=== PATIENT | female | born 1990 ===

== ENCOUNTER → 2017-10-17 | Outpatient (CLI) | payer SELFPAY ==
--- NOTE | 2017-10-17 13:07 | Diagnostic Imaging Report ---
INDICATION: Epigastric abdominal pain. TECHNIQUE: Multiple grayscale sonographic images were obtained of the right upper quadrant of the abdomen. CORRELATION STUDY: None. FINDINGS: LIVER: There is uniform echotexture within the visualized portions of the liver. Liver length 15.7 cm. GALLBLADDER: There is presence of multiple shadowing gallstones. These reportedly are largely nonmobile. Visualized gallbladder wall does not appear to be abnormally thickened, at 2 mm. COMMON BILE DUCT: Mildly dilated for the patient's age at 8 mm. PANCREAS: Largely obscured and not well visualized. RIGHT KIDNEY: Measures 10.0 cm. No hydronephrosis. AORTA/IVC: Not well visualized. OTHER: None. IMPRESSION: 1. Cholelithiasis with multiple nonmobile gallstones. Additionally, there is mild dilatation of the common bile duct. No additional findings to suggest acute cholecystitis. If further assessment is desired, nuclear medicine HIDA scan may be of additional benefit. Dictated by: Dictated on workstation # [id number]
== END ==
LOC: RAD 08:51
PROVIDERS: ATTEND Nurse Practitioner Primary Care
DX: K80.20 Calculus of gallbladder without cholecystitis without obstruction (principal)
CPT/HCPCS: 76705

== ENCOUNTER 2017-12-29 06:17 | Day surgery (SDC) | payer OTHER ==
[~2017-12-29] VITALS: Ht 149.9 cm; Wt 78.9 kg
[~2017-12-29 06:17] MED LIST: BIRTH CONTROL PILL PO; ESOM20CA PO
--- OUTSIDE RECORDS SUMMARY | 2017-12-29 06:21 | XMS REPORT ---
Author Author ZAIRA GALINDO [facility] Address [address] [place] [address] Care Team Providers Care Ultrasonic Tester Name Role Phone PRIMITIVO GALINDOTA Unavailable PROBLEMS Type Condition ICD9-CM Code AOR69-NG Code Onset Dates Condition Status SNOMED Code Problem Acanthosis nigricans L83 Active 906947013 Problem Epigastric pain R10.13 Active 31783641 Problem Calculus of gallbladder without cholecystitis without obstruction K80.20 Active 950173105 Problem Insulin resistance E88.81 Active 60774079 Problem Irregular menses N92.6 Active 10486428 Problem Gastroesophageal reflux disease, esophagitis presence not specified K21.9 Active 193634798 ALLERGIES No Known Allergies ENCOUNTERS Encounter Location Date Diagnosis [place] [address] [address] Nov, Insulin resistance E88.81 [facility] [address] [address] Nov, Irregular menses N92.6 [place] [address] [place] [id number] [place] [address] Nov, Irregular menses N92.6 ; Encounter for initial prescription of contraceptive pills Z30.011 ; Gastroesophageal reflux disease, esophagitis presence not specified K21.9 and Acanthosis nigricans L83 [facility] [address] [place] [id number] [place] [address] Oct, Calculus of gallbladder without cholecystitis without obstruction K80.20 [facility] [address] [place] [id number] [place] [address] Sep, Onychocryptosis L60.0 [place] [address] [place] [id number] [place] [address] Sep, Epigastric pain R10.13 [facility] [address] [facility] [id number] [place] [address] Sep, Onychocryptosis L60.0 [facility] [address] [facility] [id number] [address] August, [facility] [address] [facility] [id number] [place] [address] August, Well woman exam Z01.419 ; Screening for STD (sexually transmitted disease) Z11.3 ; Epigastric pain R10.13 ; Gastroesophageal reflux disease, esophagitis presence not specified K21.9 ; Acute vaginitis N76.0 and Irregular menses N92.6 [facility] [address] [facility] [id number] [id number] August, Dental examination V72.2 IMMUNIZATIONS No Known Immunizations SOCIAL HISTORY Never Assessed REASON FOR VISIT Toenail c/o,. patient states she has a rt ingrown toenail x 1 month -- aram dang PLAN OF CARE Activity Details Follow Up tomorrow Reason:nail removal VITAL SIGNS Height 59 in 2017-10-10 Weight 179.0 lbs 2017-10-10 Temperature 97.0 degrees Fahrenheit 2017-10-10 Heart Rate 70 bpm 2017-10-10 Respiratory Rate 18 2017-10-10 BMI 36.15 kg/m2 2017-10-10 Blood pressure systolic 120 mmHg 2017-10-10 Blood pressure diastolic 70 mmHg 2017-10-10 MEDICATIONS Medication Instructions Dosage Frequency Start Date End Date Duration Status Nexium 20 mg Orally Once a day 1 capsule 24h August, 90 days Active RESULTS No Results PROCEDURES No Known procedures INSTRUCTIONS MEDICATIONS ADMINISTERED No Known Medications MEDICAL (GENERAL) HISTORY Type Description Date Medical History Acid Reflux Medical History Gall stones Surgical History section Surgical History Appendectomy Hospitalization History past surgery
--- OUTSIDE RECORDS SUMMARY | 2017-12-29 06:21 | XMS REPORT ---
Author Author MOUNIKA NICHOLSON [facility] Address [address] [place] [address] Care Team Providers Care Hotel Clerk Name Role Phone MOUNIKA NICHOLSON Unavailable PROBLEMS Type Condition ICD9-CM Code MRJ63-DC Code Onset Dates Condition Status SNOMED Code Problem Acanthosis nigricans L83 Active 396215192 Problem Epigastric pain R10.13 Active 63542652 Problem Calculus of gallbladder without cholecystitis without obstruction K80.20 Active 313070189 Problem Insulin resistance E88.81 Active 17469726 Problem Irregular menses N92.6 Active 45161777 Problem Gastroesophageal reflux disease, esophagitis presence not specified K21.9 Active 186449346 ALLERGIES No Known Allergies ENCOUNTERS Encounter Location Date Diagnosis [facility] [address] [address] Nov, Insulin resistance E88.81 [facility] [address] [address] Nov, Irregular menses N92.6 [place] [address] [address] Nov, Irregular menses N92.6 ; Encounter for initial prescription of contraceptive pills Z30.011 ; Gastroesophageal reflux disease, esophagitis presence not specified K21.9 [address] L83 [facility] [address] [place] [id number] [place] [address] Oct, Calculus of gallbladder without cholecystitis without obstruction K80.20 [facility] [address] [place] [id number] [place] [address] 13 Sep, 2017 Onychocryptosis L60.0 [place] [address] [address] Sep, Epigastric pain R10.13 [facility] [address] [id number] [address] Sep, Onychocryptosis L60.0 [facility] [address] [facility] [id number], [place] [address] August, [facility] [address] [id number] [address] August, Well woman exam Z01.419 ; Screening for STD (sexually transmitted disease) Z11.3 ; Epigastric pain R10.13 ; Gastroesophageal reflux disease, esophagitis presence not specified K21.9 ; Acute vaginitis N76.0 and Irregular menses N92.6 [facility] [address] [id number] [id number] August, Dental examination V72.2 IMMUNIZATIONS No Known Immunizations SOCIAL HISTORY Never Assessed REASON FOR VISIT GERD f/u. Pt states Nexium has been more positively effective than her last medication. cedrick PLAN OF CARE Activity Details Follow Up 2 Weeks, after lab and US Reason: VITAL SIGNS Height 59 in 2017-10-11 Weight 180 lbs 2017-10-11 Temperature 98.1 degrees Fahrenheit 2017-10-11 Heart Rate 88 bpm 2017-10-11 Respiratory Rate 20 2017-10-11 BMI 36.35 kg/m2 2017-10-11 Blood pressure systolic 118 mmHg 2017-10-11 Blood pressure diastolic 80 mmHg 2017-10-11 MEDICATIONS Medication Instructions Dosage Frequency Start Date End Date Duration Status Nexium 20 mg Orally Once a day 1 capsule 24h August, Active RESULTS Name Result Date Reference Range LIPASE 2017-10-11 LIPASE 29 7-60 Ultrasound : Gallbladder 2017-10-17 PROCEDURES Procedure Date Ordered Result Body Site COMPLETE CBC W/AUTO DIFF WBC October 11, 2017 COMPREHEN METABOLIC PANEL October 11, 2017 VENIPUNCT, ROUTINE* October 11, 2017 ASSAY OF LIPASE October 11, 2017 INSTRUCTIONS MEDICATIONS ADMINISTERED No Known Medications MEDICAL (GENERAL) HISTORY Type Description Date Medical History Acid Reflux Medical History Gall stones Surgical History section Surgical History Appendectomy Hospitalization History past surgery
--- OUTSIDE RECORDS SUMMARY | 2017-12-29 06:21 | XMS REPORT ---
Author Author MOUNIKA NICHOLSON [facility] Address [address] [place] [address] Care Team Providers Care Channel Cementer Insole Machine Name Role Phone MOUNIKA NICHOLSON Unavailable PROBLEMS Type Condition ICD9-CM Code BQI06-CS Code Onset Dates Condition Status SNOMED Code Problem Acanthosis nigricans L83 Active 673943692 Problem Epigastric pain R10.13 Active 67817787 Problem Calculus of gallbladder without cholecystitis without obstruction K80.20 Active 530068443 Problem Insulin resistance E88.81 Active 07335192 Problem Irregular menses N92.6 Active 28236999 Problem Gastroesophageal reflux disease, esophagitis presence not specified K21.9 Active 211714066 ALLERGIES No Information ENCOUNTERS Encounter Location Date Diagnosis [place] [address] [address] Nov, Irregular menses N92.6 [place] [address] [address] Nov, Irregular menses N92.6 ; Encounter for initial prescription of contraceptive pills Z30.011 ; Gastroesophageal reflux disease, esophagitis presence not specified K21.9 and Acanthosis nigricans L83 [place] [address] [address] Oct, Calculus of gallbladder without cholecystitis without obstruction K80.20 [place] [address] [address] Sep, Onychocryptosis L60.0 [place] [address] [address] Sep, Epigastric pain R10.13 [place] [address] [address] Sep, Onychocryptosis L60.0 [facility] [address] [facility] [id number], [place] [address] August, [facility] [address] [facility] [id number], [place] [address] August, Well woman exam Z01.419 ; Screening for STD (sexually transmitted disease) Z11.3 ; Epigastric pain R10.13 ; Gastroesophageal reflux disease, esophagitis presence not specified K21.9 ; Acute vaginitis N76.0 and Irregular menses N92.6 [facility] [address] [facility] [id number] [id number] August, Dental examination V72.2 IMMUNIZATIONS No Known Immunizations SOCIAL HISTORY Never Assessed REASON FOR VISIT [facility] updated PLAN OF CARE VITAL SIGNS MEDICATIONS Unknown Medications RESULTS No Results PROCEDURES No Known procedures INSTRUCTIONS MEDICATIONS ADMINISTERED No Known Medications MEDICAL (GENERAL) HISTORY Type Description Date Medical History Acid Reflux Medical History Gall stones Surgical History section Surgical History Appendectomy Hospitalization History past surgery
--- OUTSIDE RECORDS SUMMARY | 2017-12-29 06:21 | XMS REPORT ---
Author Author ZAIRA GALINDO [facility] Address [address] [place] [address] Care Team Providers Care Operations Research Director Name Role Phone PRIMITIVO GALINDOTA Unavailable PROBLEMS Type Condition ICD9-CM Code KOC61-XR Code Onset Dates Condition Status SNOMED Code Problem Acanthosis nigricans L83 Active 001099806 Problem Epigastric pain R10.13 Active 19597443 Problem Calculus of gallbladder without cholecystitis without obstruction K80.20 Active 102600218 Problem Insulin resistance E88.81 Active 53777956 Problem Irregular menses N92.6 Active 33939289 Problem Gastroesophageal reflux disease, esophagitis presence not specified K21.9 Active 651352497 ALLERGIES No Known Allergies ENCOUNTERS Encounter Location Date Diagnosis [place] [address] [address] Nov, Insulin resistance E88.81 [facility] [address] [address] Nov, Irregular menses N92.6 [place] [address] [place] [id number] [place] [address] Nov, Irregular menses N92.6 ; Encounter for initial prescription of contraceptive pills Z30.011 ; Gastroesophageal reflux disease, esophagitis presence not specified K21.9 and Acanthosis nigricans L83 [facility] [address] [place] [id number] [place] [address] Oct, Calculus of gallbladder without cholecystitis without obstruction K80.20 [facility] [address] [place] [id number] [place] [address] Sep, Onychocryptosis L60.0 [place] [address] [place] [id number] [place] [address] Sep, Epigastric pain R10.13 [facility] [address] [facility] [id number] [place] [address] Sep, Onychocryptosis L60.0 [facility] [address] [facility] [id number] [place] [address] August, [facility] [address] [facility] [id number] [place] [address] August, Well woman exam Z01.419 ; Screening for STD (sexually transmitted disease) Z11.3 ; Epigastric pain R10.13 ; Gastroesophageal reflux disease, esophagitis presence not specified K21.9 ; Acute vaginitis N76.0 and Irregular menses N92.6 [facility] [address] [facility] [id number] [place] [id number] August, Dental examination V72.2 IMMUNIZATIONS No Known Immunizations SOCIAL HISTORY Never Assessed REASON FOR VISIT ingrown toenail-removal of large right ingrown toenail-[facility] PLAN OF CARE Activity Details Follow Up prn Reason: VITAL SIGNS Height 59 in 2017-10-11 Weight 179.0 lbs 2017-10-11 Temperature 97.5 degrees Fahrenheit 2017-10-11 Heart Rate 70 bpm 2017-10-11 Respiratory Rate 20 2017-10-11 BMI 36.15 kg/m2 2017-10-11 Blood pressure systolic 112 mmHg 2017-10-11 Blood pressure diastolic 78 mmHg 2017-10-11 MEDICATIONS Medication Instructions Dosage Frequency [...]
--- OUTSIDE RECORDS SUMMARY | 2017-12-29 06:21 | XMS REPORT ---
Author Author MOUNIKA NICHOLSON [facility] Address [address] [place] [address] Care Team Providers Care Cable Weaver Name Role Phone MOUNIKA NICHOLSON Unavailable PROBLEMS Type Condition ICD9-CM Code NPL86-CP Code Onset Dates Condition Status SNOMED Code Problem Acanthosis nigricans L83 Active 795146982 Problem Epigastric pain R10.13 Active 18402945 Problem Calculus of gallbladder without cholecystitis without obstruction K80.20 Active 568431059 Problem Insulin resistance E88.81 Active 03411420 Problem Irregular menses N92.6 Active 11021032 Problem Gastroesophageal reflux disease, esophagitis presence not specified K21.9 Active 001305650 ALLERGIES No Known Allergies ENCOUNTERS Encounter Location Date Diagnosis [place] [address] [address] Nov, Irregular menses N92.6 [place] [address] [address] Nov, Irregular menses N92.6 ; Encounter for initial prescription of contraceptive pills Z30.011 ; Gastroesophageal reflux disease, esophagitis presence not specified K21.9 and Acanthosis nigricans L83 [place] [address] [address] Oct, Calculus of gallbladder without cholecystitis without obstruction K80.20 [place] [address] [address] Sep, Onychocryptosis L60.0 [place] [address] [address] Sep, Epigastric pain R10.13 [place] [address] [address] Sep, Onychocryptosis L60.0 [facility] [address] [facility] [id number], [place] [address] August, [facility] [address] [facility] [id number], [place] [address] August, Well woman exam Z01.419 ; Screening for STD (sexually transmitted disease) Z11.3 ; Epigastric pain R10.13 ; Gastroesophageal reflux disease, esophagitis presence not specified K21.9 ; Acute vaginitis N76.0 and Irregular menses N92.6 [facility] [address] [facility] [id number] [place] [id number] August, Dental examination V72.2 IMMUNIZATIONS No Known Immunizations SOCIAL HISTORY Never Assessed REASON FOR VISIT Annual physical (female)--tcuppettRN, Pt is only having a few periods a year PLAN OF CARE Activity Details Follow Up 4 Weeks Reason:GERD/Abd pain Pending Test PAP REFLEX TO HPV IF ASCUS VITAL SIGNS Height 59 in 2017-09-01 Weight 176.0 lbs 2017-09-01 Temperature 98.1 degrees Fahrenheit 2017-09-01 Heart Rate 80 bpm 2017-09-01 Respiratory Rate 18 2017-09-01 BMI 35.54 kg/m2 2017-09-01 Blood pressure systolic 134 mmHg 2017-09-01 Blood pressure diastolic 82 mmHg 2017-09-01 MEDICATIONS Medication Instructions Dosage Frequency Start Date End Date Duration Status Nexium 20 mg Orally Once a day 1 capsule 24h August, 90 days Active Metronidazole 500 mg Orally 2 times a day 1 tablet 12h August,August 07 days Active RESULTS No Results PROCEDURES Procedure Date Ordered Result Body Site SPECIMEN HANDLING September 01, 2017 No Charge September 01, 2017 TRICHOMONAS ASSAY W/OPTIC September 01, 2017 Bacterial Vaginosis In House September 01, 2017 INSTRUCTIONS MEDICATIONS ADMINISTERED No Known Medications MEDICAL (GENERAL) HISTORY Type Description Date Medical History Acid Reflux Medical History Gall stones Surgical History section Surgical History Appendectomy Hospitalization History past surgery
[2017-12-29] MEDS ORDERED: ceFAZolin INJECTION 1,000 MG in NS (IVPB) 50 ML IV ONE (06:30)
[2017-12-29 06:40] VITALS: BP 126/77
[2017-12-29] MEDS: LACTATED RINGERS 1,000 ML IV PRN ×2 (06:50→09:22)
[2017-12-29 06:55] LABS: BASOPHILS % (AUTO) 0 % (0-10); EOSINOPHILS # (AUTO) 0.1 10^3/uL (0.0-0.3); EOSINOPHILS % (AUTO) 2 % (0-10); HEMATOCRIT 42 % (35-52); HEMOGLOBIN 14.7 G/DL (11.5-16.0); LYMPHOCYTES # (AUTO) 3.1 X 10^3 (1.0-4.0); LYMPHOCYTES % (AUTO) 46 % (12-44); MEAN CORPUSCULAR HEMOGLOBIN 32 PG (25-34); MEAN CORPUSCULAR HGB CONC 35 G/DL (32-36); MEAN CORPUSCULAR VOLUME 91 FL (80-99); MEAN PLATELET VOLUME 11.5 FL (7.4-10.4); MONOCYTES # (AUTO) 0.7 X 10^3 (0.0-1.0); MONOCYTES % (AUTO) 11 % (0-12); NEUTROPHILS # (AUTO) 2.8 X 10^3 (1.8-7.8); NEUTROPHILS % (AUTO) 42 % (42-75); PLATELET COUNT 254 10^3/uL (130-400); RED BLOOD COUNT 4.59 10^6/uL (4.35-5.85); RED CELL DISTRIBUTION WIDTH 12.7 % (10.0-14.5); WHITE BLOOD COUNT 6.7 10^3/uL (4.3-11.0)
[2017-12-29] MEDS ORDERED: BUPIVACAINE 0.5% 30 ML (SENSORCAINE) VIAL ONE (07:03)
[2017-12-29] MEDS ORDERED: LIDOCAINE 1% INJ 20 ML 20 ML VIAL ONE (07:03)
[2017-12-29] MEDS ORDERED: LIDOCAINE PF 2% 5 ML (XYLOCAINE) VIAL ONE (07:05)
[2017-12-29] MEDS ORDERED: proPOfol 200 MG/20 ML (DIPRIVAN) VIAL IV ONE (07:05)
[2017-12-29] MEDS ORDERED: FAMOTIDINE 20MG/2ML IV (PEPCID) ONE (07:05)
[2017-12-29] MEDS ORDERED: ONDANSETRON 4 MG/2 ML (SDV) Z0FRAN ONE (07:05)
[2017-12-29] MEDS ORDERED: DEXAMETHASONE 10 MG/ML (DECADRON) 1 ML VIAL ONE (07:05)
[2017-12-29] MEDS ORDERED: ROCURONIUM 10 MG/ML 5 ML SYRINGE IV ONE (07:05)
[2017-12-29] MEDS ORDERED: MIDAZOLAM 2 MG/2 ML (VERSED) VIAL ONE (07:06)
[2017-12-29] MEDS ORDERED: fentaNYL INJECTION 100 MCG/2 ML AMP ONE (07:06)
[2017-12-29] MEDS ORDERED: SEVOFLURANE (ULTANE) 15 ML INHAL SOLN ONE ×3 (07:14→09:58)
[2017-12-29] MEDS ORDERED: FAMOTIDINE 20MG/2ML IV (PEPCID) IVP ONE (07:15)
[2017-12-29] MEDS ORDERED: GLYCOPYRROLATE 0.2 MG/ML (ROBINUL) 2 ML VIAL ONE (07:20)
[2017-12-29] MEDS ORDERED: NEOSTIGMINE 1 MG/ML 5 ML SYRINGE ONE (07:20)
--- NOTE | 2017-12-29 09:50 | Diagnostic Imaging Report ---
INDICATION: Gallbladder disease. FINDINGS: Intraoperative cholangiogram demonstrates normal caliber of the intrahepatic and extrahepatic biliary ducts. No intrinsic or extrinsic filling defects are appreciated. There is free spill of contrast into the duodenum. There is no pathological extravasation of contrast. IMPRESSION: Unremarkable intraoperative cholangiogram status post cholecystectomy. Please correlate with the formal operative report. Dictated by: Dictated on workstation # [id number]
--- NOTE | 2017-12-29 10:04 | Progress Note-Pre Operative ---
Pre-Operative Progress Note H&P Reviewed The H&P was reviewed, patient examined and no changes noted. Date Seen by Provider: Dec 29, 2017 Time Seen by Provider: 07:46 Date H&P Reviewed: Dec 29, 2017 Time H&P Reviewed: 07:46 Pre-Operative Diagnosis: symptomatic cholelithiasis ANIL CORADO DO Dec 29, 2017 10:04 am
--- NOTE | 2017-12-29 10:05 | Progress Note-Post Operative ---
Post-Operative Progess Note Surgeon (s)/Step Finisher (s) Surgeon ANIL CORADO DO Step Finisher: Dr. Santiago Pre-Operative Diagnosis symptomatic cholelithiasis Post-Operative Diagnosis same Procedure & Operative Findings Date of Procedure 12/29/17 Procedure Performed/Findings lap santiago c ioc Anesthesia Type gen Estimated Blood Loss Estimated blood loss (mL): min Specimens/Packing Specimens Removed gallbladder ANIL CORADO DO Dec 29, 2017 10:05 am
[2017-12-29] MEDS ORDERED: DOCU-143 PO (10:06)
[2017-12-29] MEDS ORDERED: ACHD5005 PO (10:06)
--- NOTE | 2017-12-29 10:07 | Discharge Inst-Simple/Standard ---
Discharge Inst-Standard Discharge Medications New, Converted or Re-Newed RX: RX on Chart Patient Instructions/Follow Up Plan of Care/Instructions/FU: 2 weeks Atiya Activity as Tolerated: No Discharge Diet: Regular Diet Other Inst to Patient Follow up Appt: Make appointment for 2 weeks. Instructions: No lifting greater than 10 pounds. No strenuous activity. May shower in 24 hours, no tub bath or soaking. Use incentive spirometer at home as directed. No Smoking Skin/Wound Care: you have special glue over incisions it will fall off on its own. Symptoms to Report: Appetite Changes, Extremity Discoloration, Numbness/Tingling, Swelling Increased , Bleeding Excessive, Eyesight Changes, Pain Increased, Urine Color Change, Constipation(Persistent), Fever over 101 degree F, Pain/Pressure in chest, Urinating Difficulty, Cough Up/Vomit Blood, Heart Beat Irreg/Pounding, Pain/ Pressure in jaw, Vaginal Bleeding Increase, Cramps in feet or legs, Lightheadedness, Pain/Pressure in shoulder, Diarrhea(Persistent), Memory Changes Suddenly, Questions/Concerns, Weight gain consecutive days, Dizziness/ Fainting, Nausea/Vomiting, Shortness of Breath, Weight gain over 2 pounds. If eyes or skin turn yellow notify physician. If questions or concerns contact your physician Or seek help at emergency department. ANIL CORADO DO Dec 29, 2017 10:07 am
[2017-12-29] MEDS ORDERED: morphine INJ 10 MG/ML 1ML (SYR OR VIAL) ONE (10:28)
[2017-12-29] MEDS ORDERED: morphine INJ 10 MG/ML 1ML (SYR OR VIAL) IVP ONE (10:45)
[2017-12-29] MEDS ORDERED: ONDANSETRON 4 MG/2 ML (SDV) Z0FRAN IVP PRN (10:45)
[2017-12-29 11:00] VITALS: BP 126/86
[2017-12-29 11:01] VITALS: BP 126/86
--- NOTE | 2017-12-29 11:16 | Anesthesia-General Post-Op ---
General Patient Condition Mental Status/LOC: Same as Preop Cardiovascular: Satisfactory Nausea/Vomiting: Absent Respiratory: Satisfactory Pain: Controlled Complications: Absent Post Op Complications Complications None Follow Up Care/Instructions Patient Instructions None needed. Anesthesia/Patient Condition Patient Condition Patient is doing well, no complaints, stable vital signs, no apparent adverse anesthesia problems. No complications reported per nursing. MAYRA VELASCO CRNA Dec 29, 2017 11:16
[2017-12-29 11:30] VITALS: BP 109/65
[2017-12-29] MEDS ORDERED: HYDROcodone/APAP 5 MG/325 MG (LORTAB) TAB PO ONE (11:30)
[2017-12-29 12:00] VITALS: BP 110/64
[2017-12-29 12:20] VITALS: BP 110/64
--- NOTE | 2018-01-02 22:43 | OPERATIVE REPORT ---
DATE OF SERVICE: 12/29/2017 PREOPERATIVE DIAGNOSIS: Symptomatic cholelithiasis. POSTOPERATIVE DIAGNOSIS: Symptomatic cholelithiasis. PROCEDURE: Laparoscopic cholecystectomy with intraoperative cholangiogram. SURGEON: Anil Rajput DO WIND FIELD SERVICE MANAGER: Dr. Santiago; assisted in retraction, dissection and closure. ESTIMATED BLOOD LOSS: Minimal. COMPLICATIONS: None. INDICATIONS: The patient is a 27-year-old female with symptomatic cholelithiasis. She understands risks and benefits of procedure and wished to proceed with the procedure. Consent was signed and on the chart. DESCRIPTION OF PROCEDURE: The patient was taken to the operating suite. She was prepped and draped in sterile fashion. Surgical pause was performed. Prasanth technique was used to enter the abdomen just above the umbilicus. A 0 Vicryl was placed in a yjlqbt-[id number]-gbgjt fashion on the fascia for closure at the end of the case. A balloon trocar was inserted in the abdomen and pneumoperitoneum was achieved. Under direct visualization of the laparoscope, a 5-mm trocar was then placed in the subxiphoid region, two 5-mm trocars were placed in the right upper quadrant. Gallbladder was grasped and elevated. There were some slight adhesions to the gallbladder, which were taken down with blunt and cautery dissection. The cystic duct and cystic artery were then dissected out. Clips were placed on the proximal and distal portion of the cystic artery and clips were placed on the distal portion of the cystic duct. The duct was then partially transected. Arrow catheter was inserted and cholangiogram was performed. There were no filling defects. Contrast made its way into the duodenum without difficulty. The Arrow catheter was then removed. Clips were placed on the proximal portion of the cystic duct and the duct and artery were then transected. Hook cautery was used to dissect the gallbladder from the gallbladder fossa achieving hemostasis. Once removed, it was placed in an Endobag and removed through the 12 mm trocar site. The abdomen was irrigated with copious amounts of irrigation and suction. The gallbladder fossa and the artery was then reinspected. There was no bleeding and hemostasis had been achieved. The abdomen was then desufflated, the trocars were removed. The 0 Vicryl that was placed in a fhdwkk-er-pacle fashion was then tied closing the defect of the 12-mm fascial defect. The skin was then closed using 4-0 Monocryl in a subcuticular fashion. The abdomen was then washed and dried and Skin Affix was placed over the incisions. The patient tolerated the procedure well without any complications. She was taken to recovery room in stable condition. Job ID: [id number] DocumentID: [id number] Dictated Date: 01/02/2018 17:10:15 Used Car Sales Supervisor Date: 01/02/2018 22:41:50 Dictated By: ANIL RAJPUT DO
== END 2017-12-29 12:20 | disposition home or self-care (01) ==
LOC: SDC 06:17
PROVIDERS: ATTEND Surgery
DX: K80.10 Calculus of gallbladder with chronic cholecystitis without obstruction (principal); K21.9 Gastro-esophageal reflux disease without esophagitis; E66.9 Obesity, unspecified; Z68.35 Body mass index [BMI] 35.0-35.9, adult
CPT/HCPCS: 36415; 84703; 85025; 87081; 88304; 94664